=== PATIENT | female | born 2000 | race Caucasian/White ===

== ENCOUNTER 2025-03-03 18:57 | Inpatient (IN) | payer MEDICAID, OTHER, SELFPAY ==
[2025-03-03 19:40] VITALS: BP 98/61; PULSE 62; RESP 16; TEMP 36.3; O2SAT 98
[2025-03-03 20:26] VITALS: BMI 22.5
[2025-03-03 20:27] VITALS: BP 98/61; PULSE 62; RESP 16; TEMP 36.3; O2SAT 98
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
[2025-03-04 07:59] VITALS: BP 108/72; PULSE 76; RESP 16; TEMP 36.6; O2SAT 98
[2025-03-04 08:31] LABS: Hemoglobin A1C 106.5207 umol/L; Total Hemoglobin (HGBA1C) 3565.8095 umol/L
[2025-03-04 08:43] LABS: Alanine Aminotransferase 21 U/L (0-31); Albumin Level 3.7 g/dL (3.5-5.0); Alkaline Phosphatase 42 U/L (39-117); Anion Gap 11 (12-20); Aspartate Amino Transferase 24 U/L (5-31); Blood Urea Nitrogen 15 mg/dL (9-16); Calcium 8.8 mg/dL (8.4-10.2); Carbon Dioxide 23 mmol/L (22-29); Chloride 109 mmol/L (96-108); Cholesterol 184 mg/dL (<200); Creatinine Clr Calc Pharmacy 93.8; Estimated Glomerular Filt Rate > 60; HDL Cholesterol 44 mg/dL (>40); Potassium 3.8 mmol/L (3.3-5.1); Sodium 139 mmol/L (135-145); Total Protein 7.1 g/dL (6.5-8.0); Triglycerides 166 mg/dL (<150)
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
[2025-03-04 18:00] VITALS: BP 101/63; PULSE 65; RESP 16; TEMP 36.9; O2SAT 98
--- NOTE | 2025-03-04 21:21 | P.CONHOSP_ITS ---
History of Present Illness Data of Consult Service Date: 03/04/25 Requesting physician: Judy Ma Primary Care Provider: Unknown Physician HPI Reason for consult: admission HPI Patient is a 24-year-old female from [facility], Yoruba speaking with past medical history anemia, H pylori, and one , asthma, allergic rhinitis, previous alcohol use, self-injurious behaviors, severe depression, SI, vaginal yeast infection, hypotension recent weight loss of 9 lb is seen on and 5 status post admission for depression and SI. Patient forthcoming with past medical history and discussing current medical concerns including dizziness and weight loss. Patient states she does not currently take any prescription meds except for control. Even though patient is on control she is concerned that she may be as she was sexually active over the last 3 days. Patient believes her last menstrual cycle was the beginning of February. Patient reports a 9 lb weight loss due to depression and loss of appetite. Patient denies history of eating disorder. Review of Systems 2 Review of Systems: Patient denies any burning or pain on urination or vaginal discharge. Patient states she often times has a yeast infection outbreak at with ovulation. Patient can not recall what control she takes. Patient is not sure what day was her last dose. Patient reports self-injurious behavior to the left lower forearm. Patient did not require stitches or intervention. Patient denies any other open wounds. Patient denies any falls or trauma. Yes all other systems are reviewed and are negative [facility] Medical History (Updated 03/04/25 @ 21:28 by ROBERT Reynaga-[place]) Self-injurious behavior Asthma Hypotension Vaginal yeast infection GERD (gastroesophageal reflux disease) History of Helicobacter pylori infection Anemia Major depression Cognitive capacity: Alert and orientated x3 Functional capacity: independent ambulation Patient : Yes (HCG pending patient is concerned she may be although she states sh) Surgical History (Updated 03/04/25 @ 21:28 by ROBERT Reynaga-[place]) History of Social History (Updated 03/04/25 @ 21:29 by ROBERT Reynaga-[place]) Alcohol intake: former Comment: was using large amount of ecuadorian alcohol until 3 weeks prior Patient Tobacco Use Status: Never used Tobacco e-Cigarette/Vaping Use: Never Used Use of substances other than those prescribed or required for medical reasons: No Currently Displaying Signs/Symptoms of Drug Intoxication Withdrawal: No Advance Directives: No Advance Directives Information Provided: No Do you have thoughts of harming others: None Do you have a plan to hurt others: No Plan Patient : Yes (HCG pending patient is concerned she may be although she states sh) service: No Sexual orientation: Straight/Heterosexual Ebola Risk: Travel/Contact With Anyone From Affected Area/s: No Has Patient Experienced Ebola Symptoms: No Meds Allergies Allergy/AdvReac Type Severity Reaction Status Date / Time No Known Allergies Allergy Verified 03/03/25 20:48 Active Medications: Current Medications Acetaminophen (Acetaminophen 325 Mg Tablet) 650 mg PO Q6H PRN PRN Reason: Headache/Pain, Scale 1-10 Al Hydroxide/Mg Hydroxide (Magnesium Hydrox/Alum Hydrox 30 Ml Oral.Susp) 30 ml PO Q6H PRN PRN Reason: Heartburn/Nausea Hydroxyzine HCl (Hydroxyzine Hcl 25 Mg Tablet) 25 mg PO Q6H PRN PRN Reason: mild anxiety Magnesium Hydroxide (Milk Of Magnesia 30 Ml Oral.Susp) 30 ml PO DAILY PRN PRN Reason: Constipation Trazodone HCl (Trazodone Hcl 50 Mg Tablet) 50 mg PO BEDTIME MRX1 PRN PRN Reason: Insomnia Last Admin: 03/03/25 22:56 Dose: 50 mg Physical Exam 2 Vital Signs and Narrative: Vital Signs: Last Vital Signs Temp 98.4 F 03/04/25 18:00 Pulse 65 03/04/25 18:00 Resp 16 03/04/25 18:00 BP 101/63 03/04/25 18:00 Pulse Ox 98 03/04/25 18:00 O2 Del Method Room Air 03/04/25 18:00 BMI result Body Mass Index 22.5 Alert and orientated X3, able to give good history. Neuro: CN II-X11 intact, no deficits, visual acuity intact EYES: PERRLA, EOM intact, glasses on, sclera nonicteric, conjunctiva pink ENT: hearing intact, no issues with swallowing, uvula midline, lips moist, nares patent no epistaxis Cardiac: S1 S2 RRR, no murmur, no JVD, no edema in Lower ext Pulmonary: lungs clear to auscultation B Abdominal: BS active in all 4 quadrants, no guarding, tenderness, rebounding MSK: strength 5/5 upper and lower extremities : no CVA tenderness no bladder distension Extremities: no edema in lower extremities, PT and DP pulses palpable +2 Psych: mood depressed, judgement and insight good Skin: Linear bruising noted left inner forearm Results Labs 03/04/25 08:06 Labs: Laboratory Results - last 24 hr 03/04/25 08:06 Anion Gap 11 L Estim Creat Clear Calc 93.8 Estimated GFR > 60 Random Glucose 92 Estimat Average Glucose 94 Hemoglobin A1c % 4.9 Calcium 8.8 Total Bilirubin 0.5 AST 24 ALT 21 Alkaline Phosphatase 42 Total Protein 7.1 Albumin 3.7 Triglycerides 166 H Cholesterol 184 LDL Cholesterol, Calc 107 H HDL Cholesterol 44 Assessment and Plan (1) GERD (gastroesophageal reflux disease): Status: Acute Plan Patient is a 24-year-old female from [facility], Yoruba speaking with past medical history anemia, H pylori, and one , asthma, allergic rhinitis, previous alcohol use, self-injurious behaviors, severe depression, SI, vaginal yeast infection, hypotension recent weight loss of 9 lb is seen on and 5 status post admission for depression and SI. Patient has a following list of medical concerns: GERD/ history of H pylori -Starting omeprazole daily -Avoid food triggers -Monitor for symptoms -Tums PRN Weight loss -Nutritional consultation place -Patient attributes weight loss to significant depression with loss of appetite -Patient deferred need for supplemental shakes at this time -Patient encouraged to eat and drink when food and drink are offered History of asthma/ allergic rhinitis -Patient currently asymptomatic -Rescue inhaler provided prn -Claritin started History of anemia -CBC pending for a.m. -Iron panel pending History of alcohol use/ possible abuse -No issues with withdrawal as last drink was 3 weeks prior -Thiamine and folic acid ordered History of vaginal yeast infection -Patient currently asymptomatic -Monitor for symptoms -PRN topical treatment ordered -UA with reflex pending History of recent hypotension -Orthostatics ordered -Patient encouraged to increase her p.o. fluid intake -Review labs in the a.m. -Patient notified to report to nursing any signs or symptoms she may be inccurring History of self-injurious behavior -Bruising on left inner forearm stable without evidence of cellulitis or infection -Monitor sites for continued healing -No treatment indicated Reports being on control -Patient does not know what control she takes -Review med rec and order appropriate control -Unclear how many days patient has missed -Patient has been sexually active so hCG is currently ordered for the morning Hospitalist will continue to follow to review labs. We appreciate this consultation.
[2025-03-05 07:40] VITALS: BP 102/52; PULSE 54; TEMP 36.9; O2SAT 98
[2025-03-05 07:57] LABS: MANUAL DIFF FLAG NO
[2025-03-05 08:00] LABS: Hematocrit 37.5 % (37.0-47.0); Hemoglobin 13.3 g/dl (12.0-16.0); Imm Gran Abs Auto 0.01 X10*3/uL (0.00-0.03); Imm Gran Pct Auto 0.2 % (0.0-0.4); Lymphocytes Absolute Auto 2.3 X10*3/uL (1.2-4.9); Mean Corpuscular HGB Conc 35.5 g/dl (31.0-35.0); Mean Corpuscular Hemoglobin 30.9 pg (27.0-33.0); Mean Corpuscular Volume 87.0 fL (80.0-98.0); NRBC Abs Auto 0.000 X10*3/uL (0.0-0.012); NRBC Pct Auto 0.0 /100WBC (0.0-0.2); Platelet Count 192 X10*3/uL (160-400); Red Blood Count 4.31 X10*6/uL (4.20-5.50); White Blood Count 5.7 X10*3/uL (4.8-10.8)
[2025-03-05 08:15] LABS: Iron 93 mcg/dL (30-160); Percent Iron Saturation 27 % (15-50); Total Iron Binding Capacity 349 mcg/dL (228-428); Unsaturated Iron Binding 256 ug/dL
[2025-03-05 08:17] LABS: Hemoglobin A1C 103.1814 umol/L; Total Hemoglobin (HGBA1C) 3490.7974 umol/L
[2025-03-05 08:23] LABS: Alanine Aminotransferase 24 U/L (0-31); Albumin Level 3.7 g/dL (3.5-5.0); Alkaline Phosphatase 44 U/L (39-117); Anion Gap 11 (12-20); Aspartate Amino Transferase 19 U/L (5-31); Blood Urea Nitrogen 13 mg/dL (9-16); Calcium 9.0 mg/dL (8.4-10.2); Carbon Dioxide 24 mmol/L (22-29); Chloride 108 mmol/L (96-108); Creatinine Clr Calc Pharmacy 92.2; Estimated Glomerular Filt Rate > 60; Potassium 4.2 mmol/L (3.3-5.1); Sodium 139 mmol/L (135-145); Total Protein 6.9 g/dL (6.5-8.0)
[2025-03-05 13:00] VITALS: BP 101/59; PULSE 60; TEMP 36.6; O2SAT 99
[2025-03-05] MEDS: ETHINYL ESTRADIOL PO (15:41)
[2025-03-05] MEDS: DROSPIRENONE PO (15:41)
--- NOTE | 2025-03-05 17:27 | P.PNPSI_ITS ---
Subjective Subjective Date of Service: 03/05/25 Reason For Visit: Depression SI Interim History: Patient seen. Patient reports she continues to feel depressed. No active SI. Has passive SI If I weren't here it would be better . Hesitant about taking joint terminal attack controller medications because she feels she will forget to take them and is worried about fdc effects. Education provided. Patient will think about it. Denies AVH. Review of Systems Review of Systems Patient denies any burning or pain on urination or vaginal discharge. Patient states she often times has a yeast infection outbreak at with ovulation. Patient can not recall what control she takes. Patient is not sure what day was her last dose. Patient reports self-injurious behavior to the left lower forearm. Patient did not require stitches or intervention. Patient denies any other open wounds. Patient denies any falls or trauma. Yes all other systems are reviewed and are negative Mental Status Exam Mental Status Exam Patient Appearance: Appropriate Patient Orientation: Person, Place, Time and Situation Level of Consciousness: Alert Patient Behavior: Talkative Mood Description: Depressed Affect Description: Flat Patient Cognition Impaired: No Ability to Follow Directions: Good Speech Pattern: Spontaneous Speech Memory Description: Intact Diagnostics Vital Signs (24Hr): Vital Signs - 24 hr 03/04/25 18:00 03/05/25 07:40 Temperature 98.4 F 98.4 F Pulse Rate 65 54 Respiratory Rate 16 Blood Pressure 101/63 102/52 L Pulse Oximetry 98 98 Oxygen Delivery Method Room Air Room Air BMI result Body Mass Index 22.5 Labs 03/05/25 07:52 03/05/25 07:52 Labs: Laboratory Results - last 48 hr 03/04/25 03/05/25 08:06 07:52 WBC 5.7 RBC 4.31 Hgb 13.3 Hct 37.5 MCV 87.0 MCH 30.9 MCHC 35.5 H RDW 13.2 Plt Count 192 MPV 10.8 Immature Gran % (Auto) 0.2 Neut % (Auto) 45.0 Lymph % (Auto) 41.1 H Barbour % (Auto) 5.8 Eos % (Auto) 7.4 H Baso % (Auto) 0.5 Lymph # (Auto) 2.3 Barbour # (Auto) 0.3 Eos # (Auto) 0.4 Baso # (Auto) 0.0 Abs Immat Gran (auto) 0.01 Absolute Neuts (auto) 2.6 Absolute Nucleated RBC 0.000 Nucleated RBC % (auto) 0.0 Sodium 139 139 Potassium 3.8 4.2 Chloride 109 H 108 Carbon Dioxide 23 24 Anion Gap 11 L 11 L BUN 15 13 Creatinine 0.62 0.63 Estim Creat Clear Calc 93.8 92.2 Estimated GFR > 60 > 60 Random Glucose 92 86 Estimat Average Glucose 94 94 Hemoglobin A1c % 4.9 4.9 Calcium 8.8 9.0 Iron 93 TIBC 349 % Saturation 27 Unsat Iron Binding 256 Total Bilirubin 0.5 0.6 AST 24 19 ALT 21 24 Alkaline Phosphatase 42 44 Total Protein 7.1 6.9 Albumin 3.7 3.7 Triglycerides 166 H Cholesterol 184 LDL Cholesterol, Calc 107 H HDL Cholesterol 44 TSH 2.08 Beta HCG, Quant < 2 Medications Medications Current Medications Acetaminophen (Acetaminophen 325 Mg Tablet) 650 mg PO Q6H PRN PRN Reason: Headache/Pain, Scale 1-10 Al Hydroxide/Mg Hydroxide (Magnesium Hydrox/Alum Hydrox 30 Ml Oral.Susp) 30 ml PO Q6H PRN PRN Reason: Heartburn/Nausea Albuterol Sulfate (Albuterol Sulfate 90 Mcg 8 Gm Inhaler) 2 puff INHALE RQ4H PRN PRN Reason: Shortness of Breath/Wheezing Calcium Carbonate (Calcium Carbonate 750 Mg Tab.Chew) 750 mg PO Q6H PRN PRN Reason: Heartburn Folic Acid (Folic Acid 1 Mg Tablet) 1 mg PO DAILY [facility] Last Admin: 03/05/25 09:30 Dose: 1 mg Hydroxyzine HCl (Hydroxyzine Hcl 25 Mg Tablet) 25 mg PO Q6H PRN PRN Reason: mild anxiety Loratadine (Loratadine 10 Mg Tablet) 10 mg PO DAILY [facility] Last Admin: 03/05/25 09:30 Dose: 10 mg Magnesium Hydroxide (Milk Of Magnesia 30 Ml Oral.Susp) 30 ml PO DAILY PRN PRN Reason: Constipation Pt Own (Drospirenone (And Ee Tablets)) 1 each PO DAILY [facility] Last Admin: 03/05/25 15:41 Dose: 1 each Omeprazole (Omeprazole 20 Mg Capsule.Dr) 20 mg PO DAILY@0630 [facility] Last Admin: 03/05/25 05:45 Dose: 20 mg Thiamine HCl (Thiamine Hcl 100 Mg Tablet) 100 mg PO DAILY [facility] Last Admin: 03/05/25 09:30 Dose: 100 mg Trazodone HCl (Trazodone Hcl 50 Mg Tablet) 50 mg PO BEDTIME MRX1 PRN PRN Reason: Insomnia Last Admin: 03/03/25 22:56 Dose: 50 mg Allergies Allergies Allergy/AdvReac Type Severity Reaction Status Date / Time No Known Allergies Allergy Verified 03/03/25 20:48 Assessment & Plan Assessment & Plan (1) GERD (gastroesophageal reflux disease): Status: Acute Code(s): K21.9 - Gastro-esophageal reflux disease without esophagitis (2) Major depression: Status: Acute Code(s): F32.9 - Major depressive disorder, single episode, unspecified Assessment and Plan: F32.9 - Major depressive disorder, single episode, unspecified Plan Admit, CV, 15 minute checks Encourage full milieu Collateral Contact Diagnostics as needed Pt declines antidepressant trial Discharge planning Patient educated on: therapeutic strategies 03/05: Encourage medication trial. Continue current management and treatment plan. Plan Patient is a 24-year-old female from [facility], Swazi speaking with past medical history anemia, H pylori, and one , asthma, allergic rhinitis, previous alcohol use, self-injurious behaviors, severe depression, SI, vaginal yeast infection, hypotension recent weight loss of 9 lb is seen on and 5 status post admission for depression and SI. Patient has a following list of medical concerns: GERD/ history of H pylori -Starting omeprazole daily -Avoid food triggers -Monitor for symptoms -Tums PRN Weight loss -Nutritional consultation place -Patient attributes weight loss to significant depression with loss of appetite -Patient deferred need for supplemental shakes at this time -Patient encouraged to eat and drink when food and drink are offered History of asthma/ allergic rhinitis -Patient currently asymptomatic -Rescue inhaler provided prn -Claritin started History of anemia -CBC pending for a.m. -Iron panel pending History of alcohol use/ possible abuse -No issues with withdrawal as last drink was 3 weeks prior -Thiamine and folic acid ordered History of vaginal yeast infection -Patient currently asymptomatic -Monitor for symptoms -PRN topical treatment ordered -UA with reflex pending History of recent hypotension -Orthostatics ordered -Patient encouraged to increase her p.o. fluid intake -Review labs in the a.m. -Patient notified to report to nursing any signs or symptoms she may be inccurring History of self-injurious behavior -Bruising on left inner forearm stable without evidence of cellulitis or infection -Monitor sites for continued healing -No treatment indicated Reports being on control -Patient does not know what control she takes -Review med rec and order appropriate control -Unclear how many days patient has missed -Patient has been sexually active so hCG is currently ordered for the morning Hospitalist will continue to follow to review labs. We appreciate this consultation. Reason for continued inpatient stay Substantial Risk for: harm to self and rapid decompensation Time Spent With Patient Time: Total time managing care of this patient today ____ minutes.
[2025-03-05 18:00] VITALS: BP 108/57; PULSE 63; RESP 16; TEMP 36.8; O2SAT 99
[2025-03-05 18:15] VITALS: BP 101/54; PULSE 54
[2025-03-05 18:18] VITALS: BP 100/57; PULSE 63
[2025-03-05 18:20] VITALS: BP 102/60; PULSE 66
[2025-03-06] VITALS: BP 110/74; PULSE 65
[2025-03-06 01:21] LABS: Appearance Urine Clear; Glucose Urine UA Negative (Negative); PH 7.0 (5.0-9.0); Specific Gravity - Urine 1.025 (1.005-1.025); UMIC TRIGGER UA YES
[2025-03-06 08:00] VITALS: BP 92/64; PULSE 65; TEMP 36.3; O2SAT 97
[2025-03-06] MEDS: DROSPIRENONE PO (08:51)
[2025-03-06] MEDS: ETHINYL ESTRADIOL PO (08:51)
--- NOTE | 2025-03-06 09:46 | P.PNPSI_ITS ---
Subjective Subjective Date of Service: 03/06/25 Reason For Visit: Depression SI Interim History: Patient reports she is depressed. She was educated about depression medications and anxiety medications. She reports difficulty sleeping at times. She also reports decreased appetite when depressed. She has passive SI. Asked her to try Remeron tonight targeting anxiety, depression and insomnia. She was willing to try. Denies AVH. Review of Systems Review of Systems Patient denies any burning or pain on urination or vaginal discharge. Patient states she often times has a yeast infection outbreak at with ovulation. Patient can not recall what control she takes. Patient is not sure what day was her last dose. Patient reports self-injurious behavior to the left lower forearm. Patient did not require stitches or intervention. Patient denies any other open wounds. Patient denies any falls or trauma. Yes all other systems are reviewed and are negative Mental Status Exam Mental Status Exam Patient Appearance: Appropriate Patient Orientation: Person, Place, Time and Situation Level of Consciousness: Alert Patient Behavior: Talkative Mood Description: Depressed Affect Description: Flat Patient Cognition Impaired: No Ability to Follow Directions: Good Speech Pattern: Spontaneous Speech Memory Description: Intact Diagnostics Vital Signs (24Hr): Vital Signs - 24 hr 03/05/25 13:00 03/05/25 18:00 03/05/25 18:15 Temperature 98 F 98.2 F Pulse Rate 60 63 54 Respiratory Rate 16 Blood Pressure 101/59 L 108/57 L 101/54 L Pulse Oximetry 99 99 Oxygen Delivery Method Room Air Room Air 03/05/25 18:18 03/05/25 18:20 03/06/25 00:00 Temperature Pulse Rate 63 66 65 Respiratory Rate Blood Pressure 100/57 L 102/60 110/74 Pulse Oximetry Oxygen Delivery Method BMI result Body Mass Index 22.5 Labs 03/05/25 07:52 03/05/25 07:52 Labs: Laboratory Results - last 48 hr 03/05/25 03/06/25 07:52 00:10 WBC 5.7 RBC 4.31 Hgb 13.3 Hct 37.5 MCV 87.0 MCH 30.9 MCHC 35.5 H RDW 13.2 Plt Count 192 MPV 10.8 Immature Gran % (Auto) 0.2 Neut % (Auto) 45.0 Lymph % (Auto) 41.1 H [place] % (Auto) 5.8 Eos % (Auto) 7.4 H Baso % (Auto) 0.5 Lymph # (Auto) 2.3 [place] # (Auto) 0.3 Eos # (Auto) 0.4 Baso # (Auto) 0.0 Abs Immat Gran (auto) 0.01 Absolute Neuts (auto) 2.6 Absolute Nucleated RBC 0.000 Nucleated RBC % (auto) 0.0 Sodium 139 Potassium 4.2 Chloride 108 Carbon Dioxide 24 Anion Gap 11 L BUN 13 Creatinine 0.63 Estim Creat Clear Calc 92.2 Estimated GFR > 60 Random Glucose 86 Estimat Average Glucose 94 Hemoglobin A1c % 4.9 Calcium 9.0 Iron 93 TIBC 349 % Saturation 27 Unsat Iron Binding 256 Total Bilirubin 0.6 AST 19 ALT 24 Alkaline Phosphatase 44 Total Protein 6.9 Albumin 3.7 TSH 2.08 Beta HCG, Quant < 2 Urine Color Yellow Urine Appearance Clear Urine pH 7.0 Ur Specific [place] 1.025 Urine Protein Negative Urine Glucose (UA) Negative Urine Ketones Negative Urine Blood Negative Urine Nitrite Negative Ur Leukocyte Esterase Small (1+) H Urine RBC 0-2 Urine WBC 6-10 H Ur Squamous Epith Cells 6-10 Urine Bacteria Trace Hyaline Casts 0-2 Medications Medications Current Medications Acetaminophen (Acetaminophen 325 Mg Tablet) 650 mg PO Q6H PRN PRN Reason: Headache/Pain, Scale 1-10 Al Hydroxide/Mg Hydroxide (Magnesium Hydrox/Alum Hydrox 30 Ml Oral.Susp) 30 ml PO Q6H PRN PRN Reason: Heartburn/Nausea Albuterol Sulfate (Albuterol Sulfate 90 Mcg 8 Gm Inhaler) 2 puff INHALE RQ4H PRN PRN Reason: Shortness of Breath/Wheezing Calcium Carbonate (Calcium Carbonate 750 Mg Tab.Chew) 750 mg PO Q6H PRN PRN Reason: Heartburn Folic Acid (Folic Acid 1 Mg Tablet) 1 mg PO DAILY [facility] Last Admin: 03/06/25 08:52 Dose: 1 mg Hydroxyzine HCl (Hydroxyzine Hcl 25 Mg Tablet) 25 mg PO Q6H PRN PRN Reason: mild anxiety Last Admin: 03/06/25 01:36 Dose: 25 mg Loratadine (Loratadine 10 Mg Tablet) 10 mg PO DAILY [facility] Last Admin: 03/06/25 08:52 Dose: 10 mg Magnesium Hydroxide (Milk Of Magnesia 30 Ml Oral.Susp) 30 ml PO DAILY PRN PRN Reason: Constipation Pt Own (Drospirenone (And Ee Tablets)) 1 each PO DAILY [facility] Last Admin: 03/06/25 08:51 Dose: 1 each Omeprazole (Omeprazole 20 Mg Capsule.Dr) 20 mg PO DAILY@0630 [facility] Last Admin: 03/06/25 08:52 Dose: 20 mg Thiamine HCl (Thiamine Hcl 100 Mg Tablet) 100 mg PO DAILY [facility] Last Admin: 03/06/25 08:52 Dose: 100 mg Trazodone HCl (Trazodone Hcl 50 Mg Tablet) 50 mg PO BEDTIME MRX1 PRN PRN Reason: Insomnia Last Admin: 03/03/25 22:56 Dose: 50 mg Allergies Allergies Allergy/AdvReac Type Severity Reaction Status Date / Time No Known Allergies Allergy Verified 03/03/25 20:48 Assessment & Plan Assessment & Plan (1) GERD (gastroesophageal reflux disease): Status: Acute Code(s): K21.9 - Gastro-esophageal reflux disease without esophagitis (2) Major depression: Status: Acute Code(s): F32.9 - Major depressive disorder, single episode, unspecified Plan (2) Major depression: Status: Acute Code(s): F32.9 - Major depressive disorder, single episode, unspecified Assessment and Plan: F32.9 - Major depressive disorder, single episode, unspecified Plan Admit, CV, 15 minute checks Encourage full milieu Collateral Contact Diagnostics as needed Pt declines antidepressant trial Discharge planning Patient educated on: therapeutic strategies 03/05: Encourage medication trial. Continue current management and treatment plan. 03/06: Remeron 15 mg HS. Reason for continued inpatient stay Substantial Risk for: harm to self, inability to function and rapid decompensation Time Spent With Patient Time: Total time managing care of this patient today ____ minutes.
[2025-03-06 19:58] VITALS: BP 107/59; PULSE 84; TEMP 36.4; O2SAT 99
[2025-03-07 09:00] VITALS: BP 96/56; PULSE 62; RESP 16; TEMP 36.5; O2SAT 96
[2025-03-07] MEDS: ETHINYL ESTRADIOL PO (09:06)
[2025-03-07] MEDS: DROSPIRENONE PO (09:06)
--- NOTE | 2025-03-07 11:41 | MHC.CLN ---
NUTRITION CONSULT CONSULT FOR WEIGHT LOSS SECONDARY TO DEPRESSION. PATIENT REPORTED 9# WEIGHT LOSS IN UNKNOWN TIMEFRAME. BMI=22.5, WITHIN NORMAL LIMITS. NO ADDITIONAL NUTRITION INTERVENTIONS AT THIS TIME. PLEASE CONSULT RD IF PATIENT WITH POOR PO.
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
[2025-03-07 13:00] VITALS: BP 115/59; PULSE 88
[2025-03-07 18:00] VITALS: BP 143/60; PULSE 78; TEMP 37; O2SAT 98
[2025-03-08 08:19] VITALS: BP 97/54; PULSE 55; RESP 17; TEMP 36.4; O2SAT 97
[2025-03-08] MEDS: DROSPIRENONE PO (08:40)
[2025-03-08] MEDS: ETHINYL ESTRADIOL PO (08:40)
--- NOTE | 2025-03-08 11:30 | HO.PSYCHPN ---
Subjective Subjective Reason For Visit: Depression SI Diagnostics Vital Signs (24Hr): Vital Signs - 24 hr 03/07/25 13:00 03/07/25 18:00 03/08/25 08:19 Temperature 98.6 F 97.5 F Pulse Rate 88 78 55 Respiratory Rate 17 Blood Pressure 115/59 L 143/60 H 97/54 L Pulse Oximetry 98 97 Oxygen Delivery Method Room Air Room Air BMI result Body Mass Index 22.5 Labs 03/05/25 07:52 03/05/25 07:52 Medications Medications Current Medications Acetaminophen (Acetaminophen 325 Mg Tablet) 650 mg PO Q6H PRN PRN Reason: Headache/Pain, Scale 1-10 Al Hydroxide/Mg Hydroxide (Magnesium Hydrox/Alum Hydrox 30 Ml Oral.Susp) 30 ml PO Q6H PRN PRN Reason: Heartburn/Nausea Albuterol Sulfate (Albuterol Sulfate 90 Mcg 8 Gm Inhaler) 2 puff INHALE RQ4H PRN PRN Reason: Shortness of Breath/Wheezing Calcium Carbonate (Calcium Carbonate 750 Mg Tab.Chew) 750 mg PO Q6H PRN PRN Reason: Heartburn Folic Acid (Folic Acid 1 Mg Tablet) 1 mg PO DAILY [facility] Last Admin: 03/08/25 08:39 Dose: 1 mg Hydroxyzine HCl (Hydroxyzine Hcl 25 Mg Tablet) 25 mg PO Q6H PRN PRN Reason: mild anxiety Last Admin: 03/06/25 01:36 Dose: 25 mg Loratadine (Loratadine 10 Mg Tablet) 10 mg PO DAILY [facility] Last Admin: 03/08/25 08:39 Dose: 10 mg Magnesium Hydroxide (Milk Of Magnesia 30 Ml Oral.Susp) 30 ml PO DAILY PRN PRN Reason: Constipation Pt Own (Drospirenone (And Ee Tablets)) 1 each PO DAILY [facility] Last Admin: 03/08/25 08:40 Dose: 1 each Omeprazole (Omeprazole 20 Mg Capsule.Dr) 20 mg PO DAILY@0630 [facility] Last Admin: 03/08/25 06:30 Dose: 20 mg Thiamine HCl (Thiamine Hcl 100 Mg Tablet) 100 mg PO DAILY [facility] Last Admin: 03/08/25 08:39 Dose: 100 mg Trazodone HCl (Trazodone Hcl 50 Mg Tablet) 50 mg PO BEDTIME MRX1 PRN PRN Reason: Insomnia Last Admin: 03/03/25 22:56 Dose: 50 mg Allergies Allergies Allergy/AdvReac Type Severity Reaction Status Date / Time No Known Allergies Allergy Verified 03/03/25 20:48 Assessment & Plan Assessment & Plan (1) GERD (gastroesophageal reflux disease): Status: Acute Code(s): K21.9 - Gastro-esophageal reflux disease without esophagitis (2) Major depression: Status: Acute Code(s): F32.9 - Major depressive disorder, single episode, unspecified Plan (2) Major depression: Status: Acute Code(s): F32.9 - Major depressive disorder, single episode, unspecified Assessment and Plan: F32.9 - Major depressive disorder, single episode, unspecified Plan Admit, CV, 15 minute checks Encourage full milieu Collateral Contact Diagnostics as needed Pt declines antidepressant trial Discharge planning Patient educated on: therapeutic strategies 03/05: Encourage medication trial. Continue current management and treatment plan. 03/06: Remeron 15 mg HS. Time Spent With Patient Time: Total time managing care of this patient today ____ minutes.
[2025-03-08 12:39] LABS: Bacterial Vaginosis PCR NEGATIVE (Negative); Candida Group PCR DETECTED (Not Detect); Candida glab krusei PCR NOT DETECTED (Not Detect); Trichomonas vaginalis PCR NOT DETECTED (Not Detect)
[2025-03-08 13:08] LABS: CT PCR NOT DETECTED (Not Detect.); NG PCR NOT DETECTED (Not Detect.)
[2025-03-08 20:06] VITALS: BP 109/63; PULSE 92; TEMP 36.9; O2SAT 99
[2025-03-09] MEDS: ETHINYL ESTRADIOL PO (08:31)
[2025-03-09] MEDS: DROSPIRENONE PO (08:31)
[2025-03-09 08:33] VITALS: BP 111/66; PULSE 70; RESP 16; TEMP 37.4; O2SAT 99
--- NOTE | 2025-03-09 09:54 | HO.PSYCHPN ---
Subjective Subjective Date of Service: 03/09/25 Reason For Visit: Depression SI Subjective Notes: Conditional Voluntary Interim History: Patient states that she feels good. She is a little bit anxious. She denies depression. She has been taking her current medicaions as prescrbed. She declines psychotropic medications. She denies SI/HI/AH/VH. Medication Compliance: Yes Side effects from medications: No Attending Groups: Intermittent Review of Systems Acute medical concerns: No Review of Systems Review of Systems Yes all other systems are reviewed and are negative Mental Status Exam Mental Status Exam Narrative: Appearance: Casually dressed, adequate hygiene Behavior: Calm and cooperative throughout the interview. Eye contact is appropriate, and there are no signs of psychomotor agitation or retardation Speech: Normal volume and prosody Thought process logical and goal-directed Thought content: Future oriented no self-harming thoughts Mood: Good Affect: Constricted SI:denies HI:denies VH/AH:none Delusions: None Insight/judgment: Fair insight and judgment Memory/cog: Alert, oriented x 4. grossly intact to conversational testing Diagnostics Vital Signs (24Hr): Vital Signs - 24 hr 03/08/25 20:06 03/09/25 08:33 Temperature 98.4 F 99.3 F Pulse Rate 92 70 Respiratory Rate 16 Blood Pressure 109/63 111/66 Pulse Oximetry 99 99 Oxygen Delivery Method Room Air Room Air BMI result Body Mass Index 22.5 Labs 03/05/25 07:52 03/05/25 07:52 Labs: Laboratory Results - last 48 hr 03/08/25 11:30 Chlam trachomat DNA PCR NOT DETECTED N.gonorrhoeae DNA (PCR) NOT DETECTED T. vaginalis (PCR) NOT DETECTED Bact vaginosis (PCR) NEGATIVE C. krusei/glabrata (PCR) NOT DETECTED Melissa group (PCR) DETECTED A Medications Medications Current Medications Acetaminophen (Acetaminophen 325 Mg Tablet) 650 mg PO Q6H PRN PRN Reason: Headache/Pain, Scale 1-10 Al Hydroxide/Mg Hydroxide (Magnesium Hydrox/Alum Hydrox 30 Ml Oral.Susp) 30 ml PO Q6H PRN PRN Reason: Heartburn/Nausea Albuterol Sulfate (Albuterol Sulfate 90 Mcg 8 Gm Inhaler) 2 puff INHALE RQ4H PRN PRN Reason: Shortness of Breath/Wheezing Calcium Carbonate (Calcium Carbonate 750 Mg Tab.Chew) 750 mg PO Q6H PRN PRN Reason: Heartburn Folic Acid (Folic Acid 1 Mg Tablet) 1 mg PO DAILY [facility] Last Admin: 03/09/25 08:31 Dose: 1 mg Hydroxyzine HCl (Hydroxyzine Hcl 25 Mg Tablet) 25 mg PO Q6H PRN PRN Reason: mild anxiety Last Admin: 03/06/25 01:36 Dose: 25 mg Loratadine (Loratadine 10 Mg Tablet) 10 mg PO DAILY [facility] Last Admin: 03/09/25 08:30 Dose: 10 mg Magnesium Hydroxide (Milk Of Magnesia 30 Ml Oral.Susp) 30 ml PO DAILY PRN PRN Reason: Constipation Pt Own (Drospirenone (And Ee Tablets)) 1 each PO DAILY [facility] Last Admin: 03/09/25 08:31 Dose: 1 each Omeprazole (Omeprazole 20 Mg Capsule.Dr) 20 mg PO DAILY@0630 [facility] Last Admin: 03/09/25 08:30 Dose: 20 mg Thiamine HCl (Thiamine Hcl 100 Mg Tablet) 100 mg PO DAILY [facility] Last Admin: 03/09/25 08:30 Dose: 100 mg Trazodone HCl (Trazodone Hcl 50 Mg Tablet) 50 mg PO BEDTIME MRX1 PRN PRN Reason: Insomnia Last Admin: 03/03/25 22:56 Dose: 50 mg Allergies Allergies Allergy/AdvReac Type Severity Reaction Status Date / Time No Known Allergies Allergy Verified 03/03/25 20:48 Assessment & Plan Assessment & Plan (1) GERD (gastroesophageal reflux disease): Status: Acute Code(s): K21.9 - Gastro-esophageal reflux disease without esophagitis (2) Major depression: Status: Acute Code(s): F32.9 - Major depressive disorder, single episode, unspecified Plan (2) Major depression: Status: Acute Code(s): F32.9 - Major depressive disorder, single episode, unspecified Assessment and Plan: F32.9 - Major depressive disorder, single episode, unspecified Plan Admit, CV, 15 minute checks Encourage full milieu Collateral Contact Diagnostics as needed Pt declines antidepressant trial Discharge planning Patient educated on: therapeutic strategies 03/05: Encourage medication trial. Continue current management and treatment plan. 03/06: Remeron 15 mg HS. 03/09: Patient states that she feels good. She is a little bit anxious. She denies depression. She has been taking her current medicaions as prescrbed. She declines psychotropic medications. She denies SI/HI/AH/VH. Continue current treatment regimen. Patient educated on: therapeutic strategies Reason for continued inpatient stay Substantial Risk for: rapid decompensation Time Spent With Patient Time: Total time managing care of this patient today ____ minutes.
[2025-03-09 19:48] VITALS: BP 103/67; PULSE 86; RESP 18; TEMP 36.4; O2SAT 99
[2025-03-10] MEDS: DROSPIRENONE PO (08:21)
[2025-03-10] MEDS: ETHINYL ESTRADIOL PO (08:21)
[2025-03-10 08:23] VITALS: BP 106/71; PULSE 71; RESP 18; TEMP 36.8; O2SAT 98
--- NOTE | 2025-03-10 09:17 | P.DS_ITS ---
DS: Providers Provider Date of Service: 03/10/25 Date of admission: 03/03/25 18:57 Date of discharge: 03/10/25 Primary care physician: Unknown Physician Admitting clinician: Gretel Cullen Attending physician on admission: Chao Gallagher Consults: 03/04/25 19:30 Consult to Hospitalist Routine Comment: Consulting Provider: [facility] Reason For Exam: Transfer pt Attending physician on discharge: Chao Gallagher Discharging clinician: Jemma Bender DS: Diagnosis Discharge Diagnosis (1) GERD (gastroesophageal reflux disease): Status: Acute (2) Major depression: Status: Acute Mental Status Exam Mental Status Exam Narrative: Appearance: Casually dressed, adequate hygiene Behavior: Calm and cooperative throughout the interview. Eye contact is appropriate, and there are no signs of psychomotor agitation or retardation Speech: Normal volume and prosody Thought process: logical and goal-directed Thought content: Future oriented no self-harming thoughts Mood: Good Affect: Constricted SI:denies HI:denies VH/AH:none Delusions: none Insight/judgment: Fair insight and judgment Memory/cog: Alert, oriented x 4. grossly intact to conversational testing Data Data Completed and Pending Completed studies during hospitalization [Text1]: 03/04/25 03/05/25 03/06/25 08:06 07:52 00:10 WBC 5.7 RBC 4.31 Hgb 13.3 Hct 37.5 MCV 87.0 MCH 30.9 MCHC 35.5 H RDW 13.2 Plt Count 192 MPV 10.8 Immature Gran % (Auto) 0.2 Neut % (Auto) 45.0 Lymph % (Auto) 41.1 H [place] % (Auto) 5.8 Eos % (Auto) 7.4 H Baso % (Auto) 0.5 Lymph # (Auto) 2.3 [place] # (Auto) 0.3 Eos # (Auto) 0.4 Baso # (Auto) 0.0 Abs Immat Gran (auto) 0.01 Absolute Neuts (auto) 2.6 Absolute Nucleated RBC 0.000 Nucleated RBC % (auto) 0.0 Sodium 139 139 Potassium 3.8 4.2 Chloride 109 H 108 Carbon Dioxide 23 24 Anion Gap 11 L 11 L BUN 15 13 Creatinine 0.62 0.63 Estim Creat Clear Calc 93.8 92.2 Estimated GFR > 60 > 60 Random Glucose 92 86 Estimat Average Glucose 94 94 Hemoglobin A1c % 4.9 4.9 Calcium 8.8 9.0 Iron 93 TIBC 349 % Saturation 27 Unsat Iron Binding 256 Total Bilirubin 0.5 0.6 AST 24 19 ALT 21 24 Alkaline Phosphatase 42 44 Total Protein 7.1 6.9 Albumin 3.7 3.7 Triglycerides 166 H Cholesterol 184 LDL Cholesterol, Calc 107 H HDL Cholesterol 44 TSH 2.08 Beta HCG, Quant < 2 Urine Color Yellow Urine Appearance Clear Urine pH 7.0 Ur Specific [place] 1.025 Urine Protein Negative Urine Glucose (UA) Negative Urine Ketones Negative Urine Blood Negative Urine Nitrite Negative Ur Leukocyte Esterase Small (1+) H Urine RBC 0-2 Urine WBC 6-10 H Ur Squamous Epith Cells 6-10 Urine Bacteria Trace Hyaline Casts 0-2 Chlam trachomat DNA PCR N.gonorrhoeae DNA (PCR) T. vaginalis (PCR) Bact vaginosis (PCR) C. krusei/glabrata (PCR) Melissa group (PCR) 03/08/25 11:30 WBC RBC Hgb Hct MCV MCH MCHC RDW Plt Count MPV Immature Gran % (Auto) Neut % (Auto) Lymph % (Auto) [place] % (Auto) Eos % (Auto) Baso % (Auto) Lymph # (Auto) [place] # (Auto) Eos # (Auto) Baso # (Auto) Abs Immat Gran (auto) Absolute Neuts (auto) Absolute Nucleated RBC Nucleated RBC % (auto) Sodium Potassium Chloride Carbon Dioxide Anion Gap BUN Creatinine Estim Creat Clear Calc Estimated GFR Random Glucose Estimat Average Glucose Hemoglobin A1c % Calcium Iron TIBC % Saturation Unsat Iron Binding Total Bilirubin AST ALT Alkaline Phosphatase Total Protein Albumin Triglycerides Cholesterol LDL Cholesterol, Calc HDL Cholesterol TSH Beta HCG, Quant Urine Color Urine Appearance Urine pH Ur Specific [place] Urine Protein Urine Glucose (UA) Urine Ketones Urine Blood Urine Nitrite Ur Leukocyte Esterase Urine RBC Urine WBC Ur Squamous Epith Cells Urine Bacteria Hyaline Casts Chlam trachomat DNA PCR NOT DETECTED N.gonorrhoeae DNA (PCR) NOT DETECTED T. vaginalis (PCR) NOT DETECTED Bact vaginosis (PCR) NEGATIVE C. krusei/glabrata (PCR) NOT DETECTED Melissa group (PCR) DETECTED A DS: Summary Hospital Course Hospital Course: HPI: 24 yo female, seen with Yary Arguello [facility] Vice President. Reports separation from and children 8,7, and 2 to move in with boyfriend, Oct 2024. Pt sent a picture of herself holding a knife to her neck to threaten suicide to . She made superficial cuts to L arm. Reports increase in depressive sx. Since moving in with boyfriend, she left her umer ([employer]). Children have not wanted to see her, her baby is struggling with the separation. Tells crisis that suicide is her best option as her family is better off without her. Pt has had no known hx of attempts on her life. She reports living in [place] for 2 years and in the [place] area for 10 years. She does not have extended family involvement at this time. She has not been feeling good about the separation from her children, partner is jealous of the childrens father and has made demands that pt see the children only at their home, not at husbands home. As a result she goes back and forth, feels much guilt. Reports the night of admit partner was drinking. She does not know why she cannot be happy with her partner and her children. She expressed being torn about her decision. After sending the picture and cutting she took at [employer] to husbands home as her youngest was ill and she wanted to be a support to her. Reports this to be her first instance of sibs. Plan Admit, CV, 15 minute checks Encourage full milieu Collateral Contact Diagnostics as needed Pt declines antidepressant trial Discharge planning Patient educated on: therapeutic strategies 03/05: Encourage medication trial. Continue current management and treatment plan. 03/06: Remeron 15 mg HS. 03/09: Patient states that she feels good. She is a little bit anxious. She denies depression. She has been taking her current medicaions as prescrbed. She declines psychotropic medications. She denies SI/HI/AH/VH. Continue current treatment. 03/10: Patient states that she feels ?good. She notes that she has been feeling normal. She has been taking her medications as prescribed but continues to refuse psychotropic medications. She is happy to return to her residence in [place]. She denies anxiety or depression. She denies SI/HI/AH/VH. Time spent discussing smoking cessation with patient: more than 10 minutes Status at Discharge Functional status at discharge: independent ambulation Overall status at discharge: patient is back to baseline Time Spent with Patient Time attestation: Total time managing care of this patient today __30__ minutes. Time spent: Less than 30 minutes Discharge Plan Discharge Anticipated Discharge Date/Time: 03/10/25 11:00 Patient Disposition: Home, Self-Care Discharge Diagnosis: MDD, GERD Referrals: [facility] Therapy Intake tash Waters [Other] - 03/23/25 9:15 am Referral Note: Your intake will be with Evelin Abdullahi and will be in person on the 5th floor. Physician,Unknown J [Primary Care Provider, Medical] - 1 Week Discharge Medications: New omeprazole 20 mg Capsule,Delayed Release(Dr/Ec) 20 mg PO DAILY@0630 Qty: 30 0RF folic acid 1 mg Tablet 1 mg PO DAILY Qty: 30 0RF albuterol sulfate 90 mcg/actuation Hfa Aerosol Inhaler 2 puff inhalation RQ4H PRN (Reason: Shortness Of Breath/Wheezing) Qty: 1 0RF loratadine 10 mg Tablet 10 mg PO DAILY Qty: 30 0RF thiamine mononitrate (vit B1) 100 mg Tablet 100 mg PO DAILY Qty: 30 0RF Discharge Orders: Discharge Order (Routine); Ordered 03/10/25 Ordered By: Jemma Bender Diet: Regular diet Activity on Discharge: As tolerated Stand Alone Forms: Patient Portal Discharge page, Community Support Print Language: Telugu Care Plan Goals: Maintain mood and safe behaviors Take medications as prescribed Continue to pursue sobriety Practice coping skills Continue with outpatient providers and reach out to them as needed Health Concerns: Mood stability and behaviors Plan of Treatment: Follow up with your PCP, psychiatric provider and other outpatient providers regarding above concerns Take medications as prescribed Assessment: Risk assessment at time of discharge:? Patient was interviewed prior to discharge and found to be fully oriented and without any SI or HI. Patient has improved insight and judgment and wants to continue treatment. Patient is not in imminent risk of harm to self or others and has a safety plan that includes presenting to the closest ER or calling 911 if feeling unsafe.? Patient has been observed closely by nursing and unit staff throughout admission; patient has not engaged in any behaviors that suggest dangerousness to self or others and has demonstrated appropriate behaviors and impulse control. Discharge Date/Time: 03/10/25 10:31
== END 2025-03-10 10:31 | disposition home or self-care (01) | DRG 754 ==
PROVIDERS: Clinical Nurse Specialist Psychiatric/Mental Health, Adult; Nurse Practitioner Family; Admitting Provider Psychiatry & Neurology Psychiatry; Visit Provider Psychiatry & Neurology Psychiatry
DX: F32.9 Major depressive disorder, single episode, unspecified (principal); R45.851 Suicidal ideations; F10.11 Alcohol abuse, in remission; K21.9 Gastro-esophageal reflux disease without esophagitis; Z91.52 Personal history of nonsuicidal self-harm; Z79.899 Other long term (current) drug therapy
CPT/HCPCS: 36415; 80053; 80061; 81001; 81515; 83036; 83540; 84443; 84702; 85025; 87491; 87591

== ENCOUNTER → 2025-03-03 18:57 | Outpatient (BNV) | payer SELFPAY | PROVIDERS: Admitting Provider Psychiatry & Neurology Psychiatry; Visit Provider Nurse Practitioner Family | DX: K21.9 Gastro-esophageal reflux disease without esophagitis (principal) | CPT/HCPCS: 99223 ==

== ENCOUNTER → 2025-03-03 18:57 | Outpatient (BNV) | payer SELFPAY | PROVIDERS: Admitting Provider Psychiatry & Neurology Psychiatry; Visit Provider Psychiatry & Neurology Psychiatry | DX: F32.2 Major depressive disorder, single episode, severe without psychotic features (principal); K21.9 Gastro-esophageal reflux disease without esophagitis | CPT/HCPCS: 99232 ==